=== PATIENT | female | born 1965 | race Caucasian/White ===

== ENCOUNTER 2017-06-04 16:59 | Emergency (ER) | payer OTHER ==
[2017-06-04 18:59] VITALS: BP 169/88
--- NOTE | 2017-06-04 19:09 | UC ---
UC General HPI - HPI Summary HPI Summary: PT IS C/O A SUDDEN FEVER, CHILLS, FATIGUE AND HEAD PLUS CHEST CONGESTION WITH COUGH. BEGAN YESTERDAY. NO CP OR SOB, V/D OR DYSURIA - History of Current Complaint Chief Complaint: UCRespiratory Stated Complaint: FEVER, CONGESTION, COUGH Time Seen by Provider: 06/04/17 18:59 Hx Obtained From: Patient Hx Last Menstrual Period: ONSET TODAY Onset/Duration: Sudden Onset Timing: Constant Pain Intensity: 0 Associated Signs & Symptoms: Positive: Cough, Fever. Negative: Chest Pain, Diarrhea, Dysuria, Nausea, SOB, Wheezing - Allergy/Home Medications Allergies/Adverse Reactions: Allergies Allergy/AdvReac Type Severity Reaction Status Date / Time No Known Allergies Allergy Verified 06/04/17 18:52 PMH/Surg Hx/FS Hx/Imm Hx Previously Healthy: Yes - Surgical History Surgical History: Yes Surgery Procedure, Year, and Place: ESURE - Family History Known Family History: Positive: Unknown - ADOPTED - Social History Occupation: Employed Full-time Alcohol Use: Occasionally Substance Use Type: None Smoking Status (MU): Former Smoker When Did the Patient Quit Smoking/Using Tobacco: 2007 - Immunization History Vaccination Up to Date: Yes Review of Systems Constitutional: Fever, Chills, Fatigue Skin: Negative Eyes: Negative ENT: Negative, Nasal Discharge, Sinus Congestion Respiratory: Cough Cardiovascular: Negative Gastrointestinal: Negative Genitourinary: Negative Motor: Negative Neurovascular: Negative Musculoskeletal: Negative Neurological: Negative Psychological: Negative Is Patient Immunocompromised?: No All Other Systems Reviewed And Are Negative: Yes Physical Exam Triage Information Reviewed: Yes Appearance: Other: - Ill appearing but not toxic Vital Signs: Initial Vital Signs Temp 99.7 F 06/04/17 18:52 Pulse 60 06/04/17 18:52 Resp 18 06/04/17 18:52 BP 169/88 06/04/17 18:52 Pulse Ox 100 06/04/17 18:52 Vital Signs Reviewed: Yes Eyes: Positive: Conjunctiva Clear ENT: Positive: Pharynx normal, Nasal congestion, TMs normal. Negative: Nasal drainage, Hoarse voice, Sinus tenderness Neck: Positive: Supple, Nontender, No Lymphadenopathy Respiratory: Positive: Lungs clear, Normal breath sounds, No respiratory distress Cardiovascular: Positive: RRR, No Murmur Abdomen Description: Positive: Nontender, No Organomegaly, Soft Bowel Sounds: Positive: Present Neurological: Positive: Alert Psychological: Positive: Age Appropriate Behavior Skin Exam: Other - Flushed, warm and moist. Course/Dx - Course Course Of Treatment: NOTHING ON EXAM TO SUGGEST BACTERIAL INFECTION PLUS S/S'S C /W LOCAL INFLUENZA THUS WILL TX PRESUMPTIVELY. - Differential Dx - Multi-Symptom Provider Diagnoses: Influenza like illness Discharge - Discharge Plan Condition: Stable Disposition: HOME Prescriptions: Oseltamivir Phosphate [Tamiflu] 75 mg PO BID 5 Days #10 capsule Patient Education Materials: Influenza (ED) Referrals: LULA Tucker [Medical Doctor] - 5 Days
== END 2017-06-04 19:23 | disposition home or self-care (01) ==
LOC: UCCORT 16:59
DX: Z87.891 Personal history of nicotine dependence (principal); R50.9 Fever, unspecified; R05 Cough; R53.83 Other fatigue; R09.89 Other specified symptoms and signs involving the circulatory and respiratory systems
CPT/HCPCS: 99201; G0463